=== PATIENT | male | born 1955 | race Caucasian/White ===

== ENCOUNTER 2019-05-08 07:03 | Emergency (ER) | payer MEDICAID ==
[~2019-05-08] VITALS: Ht 188 cm; Wt 136.4 kg
[~2019-05-08 07:03] MED LIST: ALBU8.5H8 IH; ASPI81TA52 PO; COLC1TAB2 PO; GABA-532 PO; HYDR-4383 PO; HYDR25TA4 PO; LISI40TA4 PO; LORA10TA2 PO; MELO-82 PO; TRAM50TA2 PO
[2019-05-08 08:42] LABS: BASOPHILS # (AUTO) 0.1 X10'3 (0-0.2); BASOPHILS % (AUTO) 0.9 % (0-1); EOSINOPHILS # (AUTO) 0.2 X10'3 (0-0.9); HEMATOCRIT 48.4 % (42.0-52.0); HEMOGLOBIN 15.7 g/dl (14.0-17.9); LYMPHOCYTES % (AUTO) 26.2 % (21-51); MEAN CORPUSCULAR HEMOGLOBIN 30.2 PG (27.0-31.0); MEAN CORPUSCULAR HGB CONC 32.5 g/dL (33.0-36.5); MEAN CORPUSCULAR VOLUME 93.1 FL (78-98); MEAN PLATELET VOLUME 8.9 FL (7.4-10.4); MONOCYTES # (AUTO) 0.7 X10'3 (0-0.9); MONOCYTES % (AUTO) 8.4 % (2-12); NEUTROPHILS # (AUTO) 4.8 X10'3 (1.8-7.7); NEUTROPHILS % (AUTO) 61.5 % (42-75); PLATELET COUNT 248 X10'3 (140-440); WHITE BLOOD COUNT 7.8 X10'3 (4.5-11.0)
[2019-05-08] MEDS ORDERED: AZIT-63 PO (08:47)
[2019-05-08] MEDS ORDERED: azithromycin 250mg tablet PO ONE (08:50)
[2019-05-08] MEDS ORDERED: tranexamic acid inj. 1,000 MG in normal saline 100ml IV soln 100 ML IV ONE (09:00)
[2019-05-08 09:06] LABS: CHLORIDE 103 MMOL/L (99-107); GLUCOSE 106 MG/DL (70-104); POTASSIUM 3.8 MMOL/L (3.5-5.1); SODIUM 141 MMOL/L (135-145)
[2019-05-08 09:07] LABS: ALBUMIN 3.4 G/DL (3.4-5.0); ANION GAP 6 (8-16); BILIRUBIN,TOTAL 0.7 MG/DL (0.1-1.0); BLOOD UREA NITROGEN 22 MG/DL (7-18); BUN/CREATININE RATIO 19.8 (5.4-32.0); CALCIUM 8.7 MG/DL (8.5-10.1); CREATININE 1.11 MG/DL (0.60-1.10); MAGNESIUM 1.9 MG/DL (1.5-2.4); TOTAL CARBON DIOXIDE 31.9 MMOL/L (24-32); TOTAL PROTEIN 6.9 G/DL (6.4-8.2); eGFR 67 ML/MIN
[2019-05-08 09:08] LABS: ALANINE AMINOTRANSFERASE 32 U/L (12-78); ALKALINE PHOSPHATASE 102 IU/L (46-116); ASPARTATE AMINO TRANSFERASE 37 U/L (10-37)
[2019-05-08 09:19] LABS: PARTIAL THROMBOPLASTIN TIME 29 SECONDS (22-32)
--- NOTE | 2019-05-08 11:11 | NUR ---
pt given a sandwich and some milk
[2019-05-08 11:12] VITALS: BP 155/73
[2019-05-08] MEDS ORDERED: ALLO300T8 PO (23:07)
[2019-05-08] MEDS ORDERED: AMLO5TAB16 PO (23:07)
[2019-05-08] MEDS ORDERED: FURO20TA4 PO (23:07)
[2019-05-08] MEDS ORDERED: METO-411 PO (23:07)
== END 2019-05-08 11:19 | disposition home or self-care (01) ==
LOC: ER 07:04
DX: J20.9 Acute bronchitis, unspecified (principal); R04.2 Hemoptysis; I10 Essential (primary) hypertension; M19.90 Unspecified osteoarthritis, unspecified site; F41.9 Anxiety disorder, unspecified; M10.9 Gout, unspecified; F10.99 Alcohol use, unspecified with unspecified alcohol-induced disorder; Z87.442 Personal history of urinary calculi; Z90.49 Acquired absence of other specified parts of digestive tract; Z98.890 Other specified postprocedural states; Z87.891 Personal history of nicotine dependence; Z88.8 Allergy status to other drugs, medicaments and biological substances; Z79.82 Long term (current) use of aspirin; Z79.899 Other long term (current) drug therapy; Y90.9 Presence of alcohol in blood, level not specified
CPT/HCPCS: 36415; 71045; 71250; 80053; 83735; 83880; 85025; 85610; 85730; 96365; 99284

== ENCOUNTER 2019-05-08 20:51 | Inpatient (IN) | payer MEDICAID ==
[~2019-05-08] VITALS: Ht 188 cm; Wt 136.0 kg
[~2019-05-08 20:51] MED LIST changes: +AZIT-63 PO
[2019-05-08 21:48] LABS: BASOPHILS # (AUTO) 0.1 X10'3 (0-0.2); EOSINOPHILS # (AUTO) 0.2 X10'3 (0-0.9); EOSINOPHILS % (AUTO) 2.8 % (0-6); HEMATOCRIT 48.2 % (42.0-52.0); HEMOGLOBIN 15.5 g/dl (14.0-17.9); LYMPHOCYTES # (AUTO) 1.6 X10'3 (1.1-4.8); LYMPHOCYTES % (AUTO) 22.9 % (21-51); MEAN CORPUSCULAR HEMOGLOBIN 29.8 PG (27.0-31.0); MEAN CORPUSCULAR HGB CONC 32.1 g/dL (33.0-36.5); MEAN CORPUSCULAR VOLUME 92.9 FL (78-98); MEAN PLATELET VOLUME 8.3 FL (7.4-10.4); MONOCYTES # (AUTO) 0.6 X10'3 (0-0.9); NEUTROPHILS # (AUTO) 4.6 X10'3 (1.8-7.7); NEUTROPHILS % (AUTO) 65.3 % (42-75); PLATELET COUNT 232 X10'3 (140-440); RED BLOOD COUNT 5.19 X10'6 (4.70-6.10)
[2019-05-08 22:00] LABS: ALANINE AMINOTRANSFERASE 29 U/L (12-78); ALBUMIN 3.4 G/DL (3.4-5.0); ALKALINE PHOSPHATASE 103 IU/L (46-116); ANION GAP 4 (8-16); ASPARTATE AMINO TRANSFERASE 36 U/L (10-37); BILIRUBIN,TOTAL 0.9 MG/DL (0.1-1.0); BLOOD UREA NITROGEN 19 MG/DL (7-18); BUN/CREATININE RATIO 18.4 (5.4-32.0); CALCIUM 8.8 MG/DL (8.5-10.1); CHLORIDE 104 MMOL/L (99-107); CREATININE 1.03 MG/DL (0.60-1.10); GLUCOSE 119 MG/DL (70-104); SODIUM 140 MMOL/L (135-145); TOTAL CARBON DIOXIDE 31.9 MMOL/L (24-32); TOTAL PROTEIN 6.8 G/DL (6.4-8.2); eGFR 73 ML/MIN
--- NOTE | 2019-05-08 22:40 | NUR ---
PT UP FOR D/C. REQUESTED [facility] TO ASSIST IN DISCHARGE PROCESS. PT SPUTUM BAG FULL OF RED SPUTUM, SIGNIFICANTLY MORE THAN WHAT WAS AT TRIAGE. [facility] CANCELLED DISCHARGE ORDERS
[2019-05-08] MEDS ORDERED: FURO20TA4 PO (23:07)
[2019-05-08] MEDS ORDERED: METO-411 PO (23:07)
[2019-05-08] MEDS ORDERED: AMLO5TAB16 PO (23:07)
[2019-05-08] MEDS ORDERED: ALLO300T8 PO (23:07)
[2019-05-09] VITALS (9 sets, daily range): BP systolic 145–199; BP diastolic 60–93
[2019-05-09] MEDS ORDERED: ondansetron/PF 4mg/2ml inj IV PRN (00:05)
[2019-05-09] MEDS ORDERED: HYDROcodone/acetaminophen 5mg/325mg tablet PO PRN (00:05)
[2019-05-09] MEDS ORDERED: acetaminophen 325mg tablet PO PRN (00:05)
[2019-05-09] MEDS ORDERED: mag hydrox/Alum hydrox/simeth 30ml oral suspension PO PRN (00:05)
[2019-05-09] MEDS ORDERED: magnesium hydroxide 30ml (MOM) UD suspension PO PRN (00:05)
[2019-05-09] MEDS ORDERED: morphine 2 MG/ML inj. syringe IV PRN (00:05)
[2019-05-09] MEDS: normal saline 1000ml 1,000 ML IV SCH ×3 (00:24→20:07)
[2019-05-09] MEDS: levoFLOXACIN-Levaquin 500mg/D5 100 ML IV SCH (00:24)
--- NOTE | 2019-05-09 00:33 | NUR ---
NOTIFIED [facility] OF PT BP 218/106, NO NEW ORDERS AT THIS TIME
--- NOTE | 2019-05-09 01:00 | NUR ---
Received report from RUBEN Calloway in the ER at aprox 0045 . Patient transferred to unit at approximately 0100. Vital signs taken, 2 RN skin check performed with RUBEN Howard, patient placed on 2 L NC, re-started Levaquin at 100 mL/hr per md order and NS at 100 mL/hr. DART completed, patient ate sandwich, applesauce, and yogurt. Patient is resting will continue to monitor.
--- NOTE | 2019-05-09 02:51 | NUR ---
sent to nik PAGER ID: [phone] MESSAGE: ROOM 3011 Satish Espinoza Patient's BP has remained elevated most current readings are: @ 0217 173/93 0247 188/67 pt also showing sinus dysrithmias bradycardic episodes @ 0240HR 30-80
[2019-05-09] MEDS: ipratropium/albuterol 3ml nebule NEB SCH ×6 (03:11→23:25)
--- NOTE | 2019-05-09 03:16 | NUR ---
Spoke with Dr. Fontenot about patient's BP via telephone. He did not advise any medications or interventions at this time.
[2019-05-09] MEDS: hydrALAZINE 20mg/ml inj. IV PRN ×2 (04:22→23:10)
--- NOTE | 2019-05-09 05:35 | NUR ---
Gave patient prn Hydralazine at 0400 per MD order.
--- NOTE | 2019-05-09 06:26 | NUR ---
Problems reprioritized. Patient report given, questions answered & plan of care reviewed with RUBEN Powers.
--- NOTE | 2019-05-09 06:35 | NUR ---
Patient in room PCU 3011. I have received report from Nancy MIRANDA and had the opportunity to ask questions and assume patient care.
[2019-05-09] MEDS: loratadine 10mg tablet PO SCH (07:49)
[2019-05-09] MEDS: gabapentin 300mg capsule PO SCH ×5 (07:50→20:07)
[2019-05-09] MEDS: HYDROchlorothiazide 25mg tablet PO SCH (07:50)
[2019-05-09] MEDS: furosemide 20MG tablet PO SCH (07:50)
[2019-05-09] MEDS: allopurinol 300 MG tablet PO SCH (07:50)
[2019-05-09] MEDS: aspirin 81mg tablet.DR PO SCH (07:50)
[2019-05-09] MEDS: lisinopril 20mg tablet PO SCH (07:53)
[2019-05-09] MEDS: amLODIPine 5mg tablet PO SCH (07:54)
[2019-05-09] MEDS ORDERED: metoprolol succinate 25mg (24-HOUR) SR. Tablet PO SCH (08:00)
[2019-05-09] MEDS: MELOXICAM 7.5 MG PO SCH (08:00)
[2019-05-09] MEDS: budesonide 0.5mg/2ml UD nebule IH SCH ×2 (09:45→18:59)
--- NOTE | 2019-05-09 13:24 | NUR ---
Paged Dr Lozoya PAGER ID: [phone] MESSAGE: Priya [phone]. RE Gabriella Espinoza1. FYI that patient is still coughing up blood, since you were asking this morning and he had not yet. Just gave patient suction and there is blood present.
--- NOTE | 2019-05-09 14:09 | NUR ---
Paged Dr Lozoya PAGER ID: [phone] MESSAGE: Priya [phone]. RE Gabriella Espinoza1. FYI that patients HR did go down into the 40s, but is now back up at 58.
[2019-05-09] MEDS ORDERED: iohexol 300mg/ml 100ml inj. ONE (15:15)
--- NOTE | 2019-05-09 18:35 | NUR ---
Patient in room PCU 3009. I have received report from RUBEN Powers and had the opportunity to ask questions and assume patient care.
--- NOTE | 2019-05-09 18:44 | NUR ---
Problems reprioritized. Patient report given, questions answered & plan of care reviewed with Arlene MIRANDA.
[2019-05-09] MEDS: lactobacillus rhamnosus 10,000 MMU CELLS/CAPSULE PO SCH (20:07)
[2019-05-10] VITALS (7 sets, daily range): BP systolic 144–182; BP diastolic 57–91
--- NOTE | 2019-05-10 00:16 | NUR ---
Pt BP 199/68, treated with hydralazine 10mg IV, reduced to 182/93. MD notified. No further treatment at this time.
[2019-05-10] MEDS: levoFLOXACIN-Levaquin 500mg/D5 100 ML IV SCH (00:48)
[2019-05-10] MEDS: ipratropium/albuterol 3ml nebule NEB SCH ×6 (02:54→23:02)
[2019-05-10] MEDS: normal saline 1000ml 1,000 ML IV SCH ×2 (03:12→16:04)
[2019-05-10 06:05] LABS: ALBUMIN 3.3 G/DL (3.4-5.0); ANION GAP 5 (8-16); BLOOD UREA NITROGEN 11 MG/DL (7-18); BUN/CREATININE RATIO 14.5 (5.4-32.0); CALCIUM 9.5 MG/DL (8.5-10.1); CHLORIDE 103 MMOL/L (99-107); CREATININE 0.76 MG/DL (0.60-1.10); GLUCOSE 118 MG/DL (70-104); SODIUM 139 MMOL/L (135-145); TOTAL CARBON DIOXIDE 30.9 MMOL/L (24-32); eGFR > 90 ML/MIN
--- NOTE | 2019-05-10 06:13 | NUR ---
Problems reprioritized. Patient report given, questions answered & plan of care reviewed with RUBEN Powers.
--- NOTE | 2019-05-10 06:31 | NUR ---
Patient in room PCU 3011. I have received report from Arlene MIRANDA and had the opportunity to ask questions and assume patient care.
[2019-05-10] MEDS: budesonide 0.5mg/2ml UD nebule IH SCH ×2 (07:08→19:56)
[2019-05-10 07:30] LABS: BASOPHILS # (AUTO) 0.1 X10'3 (0-0.2); BASOPHILS % (AUTO) 1.1 % (0-1); EOSINOPHILS # (AUTO) 0.1 X10'3 (0-0.9); EOSINOPHILS % (AUTO) 0.7 % (0-6); HEMATOCRIT 48.9 % (42.0-52.0); HEMOGLOBIN 16.1 g/dl (14.0-17.9); LYMPHOCYTES # (AUTO) 1.3 X10'3 (1.1-4.8); LYMPHOCYTES % (AUTO) 14.5 % (21-51); MEAN CORPUSCULAR HEMOGLOBIN 30.5 PG (27.0-31.0); MEAN CORPUSCULAR HGB CONC 32.9 g/dL (33.0-36.5); MEAN CORPUSCULAR VOLUME 92.7 FL (78-98); MEAN PLATELET VOLUME 8.8 FL (7.4-10.4); MONOCYTES # (AUTO) 0.7 X10'3 (0-0.9); MONOCYTES % (AUTO) 7.9 % (2-12); NEUTROPHILS # (AUTO) 6.8 X10'3 (1.8-7.7); NEUTROPHILS % (AUTO) 75.8 % (42-75); PLATELET COUNT 213 X10'3 (140-440); RED BLOOD COUNT 5.27 X10'6 (4.70-6.10); RED CELL DISTRIBUTION WIDTH 14.8 % (11.5-14.5); WHITE BLOOD COUNT 8.9 X10'3 (4.5-11.0)
[2019-05-10] MEDS: aspirin 81mg tablet.DR PO SCH (07:30)
[2019-05-10] MEDS: loratadine 10mg tablet PO SCH (07:30)
[2019-05-10] MEDS: gabapentin 300mg capsule PO SCH ×4 (07:31→20:44)
[2019-05-10] MEDS: amLODIPine 5mg tablet PO SCH ×2 (07:31→08:54)
[2019-05-10] MEDS: allopurinol 300 MG tablet PO SCH (07:31)
[2019-05-10] MEDS: lisinopril 20mg tablet PO SCH (07:31)
[2019-05-10] MEDS: furosemide 20MG tablet PO SCH (07:31)
[2019-05-10] MEDS: HYDROchlorothiazide 25mg tablet PO SCH (07:32)
[2019-05-10] MEDS: MELOXICAM 7.5 MG PO SCH (07:33)
[2019-05-10] MEDS: lactobacillus rhamnosus 10,000 MMU CELLS/CAPSULE PO SCH ×2 (07:33→20:44)
[2019-05-10] MEDS: metoprolol succinate 25mg (24-HOUR) SR. Tablet PO SCH (07:33)
[2019-05-10 13:40] LABS: URINE AMPHETAMINE SCREEN POSITIVE (Neg); URINE BARBITUATE SCREEN NEGATIVE (Neg); URINE BENZODIAZEPINES SCREEN NEGATIVE (Neg); URINE CANNABINOID SCREEN POSITIVE (Neg); URINE COCAINE SCREEN NEGATIVE (Neg); URINE METHADONE SCREEN NEGATIVE (Neg); URINE OPIATE SCREEN POSITIVE (Neg); URINE PHENCYCLIDINE SCREEN NEGATIVE (Neg)
[2019-05-10] MEDS ORDERED: METF-950 PO (14:39)
--- NOTE | 2019-05-10 18:40 | NUR ---
Problems reprioritized. Patient report given, questions answered & plan of care reviewed with Pat RN.
--- NOTE | 2019-05-10 19:00 | NUR ---
pt states he coughed up bloody sputum earlier today Addendum: 05/10/19 at 2330 by Angie Cuevas RN Amended: Links added.
[2019-05-11] VITALS (22 sets, daily range): BP systolic 65–170; BP diastolic 42–96
[2019-05-11] MEDS: ipratropium/albuterol 3ml nebule NEB SCH ×5 (02:39→20:05)
[2019-05-11] MEDS: hydrALAZINE 20mg/ml inj. IV PRN (03:05)
[2019-05-11] MEDS: normal saline 1000ml 1,000 ML IV SCH ×3 (03:41→22:04)
[2019-05-11 06:02] LABS: BASOPHILS # (AUTO) 0.1 X10'3 (0-0.2); BASOPHILS % (AUTO) 1.1 % (0-1); EOSINOPHILS # (AUTO) 0.1 X10'3 (0-0.9); HEMATOCRIT 51.6 % (42.0-52.0); HEMOGLOBIN 17.1 g/dl (14.0-17.9); LYMPHOCYTES # (AUTO) 1.1 X10'3 (1.1-4.8); MEAN CORPUSCULAR HEMOGLOBIN 30.5 PG (27.0-31.0); MEAN CORPUSCULAR HGB CONC 33.2 g/dL (33.0-36.5); MEAN CORPUSCULAR VOLUME 91.8 FL (78-98); MEAN PLATELET VOLUME 8.6 FL (7.4-10.4); MONOCYTES # (AUTO) 0.7 X10'3 (0-0.9); MONOCYTES % (AUTO) 7.9 % (2-12); NEUTROPHILS # (AUTO) 6.5 X10'3 (1.8-7.7); PLATELET COUNT 215 X10'3 (140-440); RED BLOOD COUNT 5.62 X10'6 (4.70-6.10); RED CELL DISTRIBUTION WIDTH 14.7 % (11.5-14.5); WHITE BLOOD COUNT 8.4 X10'3 (4.5-11.0)
[2019-05-11 06:16] LABS: ALBUMIN 3.3 G/DL (3.4-5.0); ANION GAP 6 (8-16); BLOOD UREA NITROGEN 12 MG/DL (7-18); BUN/CREATININE RATIO 14.3 (5.4-32.0); CALCIUM 8.8 MG/DL (8.5-10.1); CHLORIDE 101 MMOL/L (99-107); CREATININE 0.84 MG/DL (0.60-1.10); GLUCOSE 120 MG/DL (70-104); POTASSIUM 3.8 MMOL/L (3.5-5.1); SODIUM 140 MMOL/L (135-145); TOTAL CARBON DIOXIDE 33.5 MMOL/L (24-32); eGFR > 90 ML/MIN
--- NOTE | 2019-05-11 06:27 | NUR ---
Patient in room PCU 3011. I have received report from Ariane RN and had the opportunity to ask questions and assume patient care.
[2019-05-11] MEDS: budesonide 0.5mg/2ml UD nebule IH SCH ×2 (07:29→20:05)
[2019-05-11] MEDS: MELOXICAM 7.5 MG PO SCH (08:00)
[2019-05-11] MEDS: allopurinol 300 MG tablet PO SCH (08:06)
[2019-05-11] MEDS: gabapentin 300mg capsule PO SCH ×4 (08:06→21:00)
[2019-05-11] MEDS: furosemide 20MG tablet PO SCH (08:06)
[2019-05-11] MEDS: loratadine 10mg tablet PO SCH (08:06)
[2019-05-11] MEDS: lactobacillus rhamnosus 10,000 MMU CELLS/CAPSULE PO SCH ×2 (08:06→20:59)
[2019-05-11] MEDS: metoprolol succinate 25mg (24-HOUR) SR. Tablet PO SCH (08:07)
[2019-05-11] MEDS: amLODIPine 5mg tablet PO SCH (08:07)
[2019-05-11] MEDS: HYDROchlorothiazide 25mg tablet PO SCH (08:07)
[2019-05-11] MEDS: lisinopril 20mg tablet PO SCH (08:07)
[2019-05-11] MEDS ORDERED: LIDOcaine 4% (40 mg/ml) topical solution 50ml MM ONE (09:50)
[2019-05-11] MEDS ORDERED: MIDAZolam 5mg/5ml vial IV PRN (09:50)
[2019-05-11] MEDS ORDERED: fentaNYL/PF 50MCG/1 ML 2ML syringe IV PRN (09:50)
[2019-05-11] MEDS ORDERED: LIDOcaine 4% (40 mg/ml) topical solution 50ml INH ONE (09:50)
[2019-05-11] MEDS ORDERED: phenylephrine 1% (X-tra strg) 15ml nasal spray NS ONE (09:50)
[2019-05-11] MEDS ORDERED: epiNEPHrine 1 mg/ml inj IR PRN (09:50)
[2019-05-11] MEDS ORDERED: LIDOcaine Viscous 15ml cup PO ONE (09:50)
[2019-05-11] MEDS: levoFLOXACIN 500mg tablet PO SCH (11:01)
[2019-05-11 11:42] LABS: CLARITY,URINE CLEAR (Clear); COLOR,URINE YELLOW (Yellow); GLUCOSE, URINE >=1000 mg/dl (Neg); KETONES,URINE NEGATIVE (Neg); LEUKOCYTE ESTERASE ,URINE NEGATIVE (Neg); NITRITES, URINE NEGATIVE (Neg); OCCULT BLOOD,URINE NEGATIVE (Neg); PROTEIN,URINE NEGATIVE (Neg); UROBILINOGEN,URINE 0.2 E.U/dL (0.2-1.0)
[2019-05-11 11:46] LABS: UA COLLECTION TYPE CLN CATCH MIDSTREAM
[2019-05-11 11:51] LABS: BACTERIA,URINE NONE SEEN /HPF (Neg); RBC,URINE 0-2 /HPF (0-2); SQUAMOUS EPITHELIAL CELL,UR FEW /LPF (FEW); WBC,URINE NONE SEEN /HPF (0-4)
[2019-05-11] MEDS ORDERED: lidocaine 2% viscous 15 ML cup ***bronch room only MM ONE (14:21)
[2019-05-11] MEDS ORDERED: LIDOCAINE 4% (40MG/ML) topical solution 50ml **BRONCH ONLY ONE (14:21)
[2019-05-11] MEDS ORDERED: phenylephrine 1% Nasal spray (extra-strength) 15 ML bottle **bronch room NS ONE (14:21)
[2019-05-11] MEDS ORDERED: epiNEPHrine 1 MG/ML 1 ml ampule **BRONCH ONLY ONE (14:21)
[2019-05-11] MEDS ORDERED: midazolam 2 mg/2 ml injection ONE (14:30)
[2019-05-11] MEDS ORDERED: fentaNYL/PF 50MCG/1 ML 2ML syringe ONE (14:31)
--- NOTE | 2019-05-11 16:00 | NUR ---
Patient returned from Bronchoscopy, in stable condition. BP 113/60 HR 73, 02 94 on 3L NC. Orders acknowledged to check vitals q15 min and to administer ice chips/clear liquid until patient's numbing wears off and has regained swallowing feeling.
[2019-05-11 17:11] LABS: BAL RBC 1350 /CU MM; BAL WBC 71 /CU MM
--- NOTE | 2019-05-11 18:21 | NUR ---
Problems reprioritized. Patient report given, questions answered & plan of care reviewed with Karolina MIRANDA.
--- NOTE | 2019-05-11 18:25 | NUR ---
Patient in room PCU 3011. I have received report from Priya MIRANDA and had the opportunity to ask questions and assume patient care.
[2019-05-12 03:00] VITALS: BP 143/74
[2019-05-12] MEDS: normal saline 1000ml 1,000 ML IV SCH (03:30)
[2019-05-12] MEDS: ipratropium/albuterol 3ml nebule NEB SCH ×5 (03:39→14:59)
[2019-05-12 03:45] VITALS: BP 143/72
[2019-05-12 05:42] LABS: BASOPHILS # (AUTO) 0.1 X10'3 (0-0.2); BASOPHILS % (AUTO) 0.5 % (0-1); EOSINOPHILS # (AUTO) 0.1 X10'3 (0-0.9); EOSINOPHILS % (AUTO) 0.7 % (0-6); HEMATOCRIT 48.5 % (42.0-52.0); HEMOGLOBIN 16.3 g/dl (14.0-17.9); LYMPHOCYTES # (AUTO) 1.2 X10'3 (1.1-4.8); LYMPHOCYTES % (AUTO) 9.8 % (21-51); MEAN CORPUSCULAR HEMOGLOBIN 31.1 PG (27.0-31.0); MEAN CORPUSCULAR HGB CONC 33.6 g/dL (33.0-36.5); MEAN CORPUSCULAR VOLUME 92.5 FL (78-98); MEAN PLATELET VOLUME 8.9 FL (7.4-10.4); MONOCYTES # (AUTO) 1.1 X10'3 (0-0.9); MONOCYTES % (AUTO) 9.3 % (2-12); NEUTROPHILS # (AUTO) 9.5 X10'3 (1.8-7.7); NEUTROPHILS % (AUTO) 79.7 % (42-75); PLATELET COUNT 225 X10'3 (140-440); RED BLOOD COUNT 5.24 X10'6 (4.70-6.10); RED CELL DISTRIBUTION WIDTH 14.7 % (11.5-14.5); WHITE BLOOD COUNT 11.9 X10'3 (4.5-11.0)
[2019-05-12 05:45] LABS: ALBUMIN 3.1 G/DL (3.4-5.0); ANION GAP 6 (8-16); BLOOD UREA NITROGEN 20 MG/DL (7-18); BUN/CREATININE RATIO 19.6 (5.4-32.0); CALCIUM 8.8 MG/DL (8.5-10.1); CHLORIDE 100 MMOL/L (99-107); CREATININE 1.02 MG/DL (0.60-1.10); GLUCOSE 138 MG/DL (70-104); SODIUM 138 MMOL/L (135-145); TOTAL CARBON DIOXIDE 32.1 MMOL/L (24-32); eGFR 74 ML/MIN
[2019-05-12 06:04] LABS: POTASSIUM 4.3 MMOL/L (3.5-5.1)
--- NOTE | 2019-05-12 06:07 | NUR ---
Patient in room PCU 3011. I have received report from [facility] and had the opportunity to ask questions and assume patient care.
--- NOTE | 2019-05-12 06:11 | NUR ---
Problems reprioritized. Patient report given, questions answered & plan of care reviewed with Shea MIRANDA. Addendum: 05/12/19 at 0613 by Karolina Robert RN Danae MIRANDA
[2019-05-12] MEDS: budesonide 0.5mg/2ml UD nebule IH SCH (06:58)
[2019-05-12 07:00] VITALS: BP 132/72
[2019-05-12] MEDS: MELOXICAM 7.5 MG PO SCH (08:00)
[2019-05-12] MEDS: gabapentin 300mg capsule PO SCH ×2 (08:15→12:42)
[2019-05-12] MEDS: metoprolol succinate 25mg (24-HOUR) SR. Tablet PO SCH (08:15)
[2019-05-12] MEDS: loratadine 10mg tablet PO SCH (08:15)
[2019-05-12] MEDS: HYDROchlorothiazide 25mg tablet PO SCH (08:15)
[2019-05-12] MEDS: lactobacillus rhamnosus 10,000 MMU CELLS/CAPSULE PO SCH (08:16)
[2019-05-12] MEDS: lisinopril 20mg tablet PO SCH (08:16)
[2019-05-12] MEDS: furosemide 20MG tablet PO SCH (08:16)
[2019-05-12] MEDS: allopurinol 300 MG tablet PO SCH (08:16)
[2019-05-12] MEDS: amLODIPine 5mg tablet PO SCH (08:16)
[2019-05-12 11:00] VITALS: BP 156/77
[2019-05-12] MEDS: levoFLOXACIN 500mg tablet PO SCH (11:45)
[2019-05-12] MEDS ORDERED: LEVO500T89 PO (14:06)
[2019-05-12] MEDS ORDERED: NOR5T PO (14:06)
--- NOTE | 2019-05-12 14:08 | NUR ---
Paged Dr. Lozoya PAGER ID: [phone] MESSAGE: [id number] Juli- Ambulated patient sat 92 on room air.
[2019-05-12] MEDS ORDERED: METO50TA7 PO (14:18)
--- NOTE | 2019-05-12 16:10 | NUR ---
Patient discharged. All discharge instructions given to patient. Bedside delivery of new prescriptions. IV removed cannula intact, Tele box removed and returned. Patient was wheeled down where patients friend was waiting to picker tender helper.
[2019-05-13] MEDS ORDERED: metoprolol succinate 25mg (24-HOUR) SR. Tablet PO SCH (08:00)
[2019-05-13 14:01] LABS: ATYPICAL PANCA <1:20 titer (Neg:<1:20); CYTOPLASMIC (C-ANCA) <1:20 titer (Neg:<1:20); PERINUCLEAR (P-ANCA) <1:20 titer (Neg:<1:20)
== END 2019-05-12 16:10 | disposition home or self-care (01) | DRG 812 ==
LOC: ER 20:52 → PCU 3S 05-09 00:53 → CMPBEDREQ 05-10 17:24
PROVIDERS: ADMIT Family Medicine; ATTEND Family Medicine
PROC: BW241ZZ Computerized Tomography (CT Scan) of Chest and Abdomen using Low Osmolar Contrast (ICD-10-PCS; 2019-05-09)
PROC: CB121ZZ Planar Nuclear Medicine Imaging of Lungs and Bronchi using Technetium 99m (Tc-99m) (ICD-10-PCS; 2019-05-10)
PROC: 0B9D8ZZ Drainage of Right Middle Lung Lobe, Via Natural or Artificial Opening Endoscopic (ICD-10-PCS; principal; 2019-05-11)
DX: T43.621A Poisoning by amphetamines, accidental (unintentional), initial encounter (principal); G62.9 Polyneuropathy, unspecified; J20.9 Acute bronchitis, unspecified; F17.290 Nicotine dependence, other tobacco product, uncomplicated; F41.9 Anxiety disorder, unspecified; M10.9 Gout, unspecified; M19.90 Unspecified osteoarthritis, unspecified site; R00.1 Bradycardia, unspecified; F15.10 Other stimulant abuse, uncomplicated; R04.2 Hemoptysis; G47.33 Obstructive sleep apnea (adult) (pediatric); E66.9 Obesity, unspecified; I10 Essential (primary) hypertension; Z79.84 Long term (current) use of oral hypoglycemic drugs; Z79.899 Other long term (current) drug therapy; Z87.442 Personal history of urinary calculi; Z88.8 Allergy status to other drugs, medicaments and biological substances; Z90.49 Acquired absence of other specified parts of digestive tract; Z79.82 Long term (current) use of aspirin; Z68.38 Body mass index [BMI] 38.0-38.9, adult; Y92.89 Other specified places as the place of occurrence of the external cause
CPT/HCPCS: 36415; 71045; 71260; 78582; 80048; 80053; 80305; 81001; 82088; 85025; 86038; 86256; 87070; 87077; 87081; 87102; 87186; 87305; 89051; 93306; 93975; 94640; 94668; 94760; 96365; 96375; 99285; A9539; A9540; G0378; J0171; J0360; J1956; J2250; J3010; J7030; J7626; Q9967

== ENCOUNTER 2023-12-08 08:49 | Day surgery (SDC) | payer BC, MEDICAID ==
[2023-12-04 10:32] LABS: BASOPHILS # (AUTO) 0.1 X10'3 (0-0.2); BASOPHILS % (AUTO) 0.9 % (0-1); EOSINOPHILS # (AUTO) 0.4 X10'3 (0-0.9); EOSINOPHILS % (AUTO) 3.2 % (0-6); LYMPHOCYTES # (AUTO) 3.3 X10'3 (1.1-4.8); LYMPHOCYTES % (AUTO) 29.7 % (21-51); MEAN CORPUSCULAR HEMOGLOBIN 27.8 PG (27.0-31.0); MEAN CORPUSCULAR HGB CONC 31.9 g/dL (33.0-36.5); MEAN CORPUSCULAR VOLUME 87.1 FL (78-98); MEAN PLATELET VOLUME 8.6 FL (7.4-10.4); MONOCYTES # (AUTO) 0.7 X10'3 (0-0.9); MONOCYTES % (AUTO) 6.7 % (2-12); NEUTROPHILS # (AUTO) 6.5 X10'3 (1.8-7.7); NEUTROPHILS % (AUTO) 59.5 % (42-75); PRE OP HEMATOCRIT 51.3 % (42.0-52.0); PRE OP HEMOGLOBIN 16.4 g/dL (14.0-17.9); PRE OP PLATELET COUNT 268 X10'3 (140-440); RED BLOOD COUNT 5.89 X10'6 (4.70-6.10); RED CELL DISTRIBUTION WIDTH 16.9 % (11.5-14.5)
[2023-12-04 10:45] LABS: ALBUMIN 3.8 G/DL (3.4-5.0); ALBUMIN/GLOBULIN RATIO 0.9 (1.1-1.5); ALKALINE PHOSPHATASE 142 IU/L (46-116); BLOOD UREA NITROGEN 22 MG/DL (7-18); BUN/CREATININE RATIO 25.6 (10.0-20.0); CALCIUM 9.7 MG/DL (8.5-10.1); CHLORIDE 103 MMOL/L (99-107); CREATININE 0.86 MG/DL (0.60-1.10); PRE OP ALT 19 U/L (30-65); PRE OP ANION GAP 8 (8-16); PRE OP AST 23 U/L (10-37); PRE OP BILIRUB, TOTAL 0.5 MG/DL (0.0-1.0); PRE OP GLUCOSE 72 MG/DL (70-104); PRE OP SODIUM 144 MMOL/L (135-145); TOTAL CARBON DIOXIDE 33.3 MMOL/L (24-32); TOTAL PROTEIN 7.9 G/DL (6.4-8.2); eGFR 89 ML/MIN
[~2023-12-08] VITALS: Ht 188 cm; Wt 140.6 kg
[2023-12-08] VITALS (7 sets, daily range): BP systolic 141–166; BP diastolic 67–89; PULSE 74–84; RESP 16–24; TEMP 98.1; O2SAT 94–97
[2023-12-08] MEDS: cefazolin 2gm/D5W 100mL 100 ML IV ONE (05:30)
[~2023-12-08 08:49] MED LIST changes: -ALBU8.5H8 IH; +ALLO300T8 PO; +ATOR10TA87 PO; -AZIT-63 PO; -COLC1TAB2 PO; +DOCUMENT DATE & TIME OF BETA-BLOCKER PO ONE; +EMPA25TA PO; +FLUT1BLS4 INH; +FURO80TA3 PO; -GABA-532 PO; +GLIP10TA21 PO; -HYDR-4383 PO; -HYDR25TA4 PO; +IPRA3AMP31 NEB; +KEN0.1O TP; +LIDOCAINE PATCH; +LISI40TA13 PO; -LISI40TA4 PO; -LORA10TA2 PO; -MELO-82 PO; +METF-438 PO; +METO-411 PO; -TRAM50TA2 PO; +TRAZ-251 PO
[2023-12-08] MEDS: famotidine 20mg tablet PO ONE (10:45)
[2023-12-08] MEDS: ringers solution, lacted 1,000 ML IV SCH (10:45)
[2023-12-08] MEDS ORDERED: meperidine/PF 25mg/ml syringe IV PRN ×3 (12:10)
[2023-12-08] MEDS ORDERED: hydrALAZINE 20mg/ml inj. IV PRN (12:10)
[2023-12-08] MEDS ORDERED: ringers solution, lacted 1,000 ML IV SCH (12:10)
[2023-12-08] MEDS ORDERED: proCHLORperazine 10 MG/2 ml inj IV PRN (12:10)
[2023-12-08] MEDS ORDERED: labetalol 20mg/4ml (5mg/ml) syringe IV PRN (12:10)
[2023-12-08] MEDS ORDERED: acetaminophen 1,000mg/100ml IV 100 ML IV ONE (12:10)
[2023-12-08] MEDS ORDERED: morphine 2 MG/ML inj. syringe IV PRN (12:10)
[2023-12-08] MEDS ORDERED: ondansetron/PF 4mg/2ml inj IV PRN (12:10)
[2023-12-08] MEDS ORDERED: morphine 4 MG/ML inj SYRINge IV PRN (12:10)
[2023-12-08] MEDS ORDERED: LIDOcaine 1% (10mg/ml)w/preservative inj. 20ml MDV ONE (12:32)
[2023-12-08] MEDS ORDERED: BUPIVAcaine 2.5mg/ml inj 50ml vial (contains preservative) ONE (12:32)
[2023-12-08] MEDS ORDERED: fentaNYL/PF 50MCG/1 ML 2ML syringe ONE (12:49)
[2023-12-08] MEDS ORDERED: midazolam 1 mg/ML 2ml injection ONE (12:53)
[2023-12-08] MEDS ORDERED: LIDOcaine 1%/PF 5ML 10 MG/ML VIAL ONE (12:56)
[2023-12-08] MEDS ORDERED: propofol inj 20 ML IV ONE ×2 (12:56)
[2023-12-08] MEDS: BUPIVAcaine 2.5mg/ml inj 50ml vial (contains preservative) SQ ONE (13:05)
[2023-12-08] MEDS: LIDOcaine 2% (20mg/ml) 5ml vial SQ ONE (13:05)
== END 2023-12-08 13:09 | disposition home or self-care (01) ==
LOC: PAS 08:49
PROVIDERS: ATTEND Orthopaedic Surgery Hand Surgery
DX: G56.02 Carpal tunnel syndrome, left upper limb (principal); I10 Essential (primary) hypertension; E11.9 Type 2 diabetes mellitus without complications; G47.33 Obstructive sleep apnea (adult) (pediatric); J44.9 Chronic obstructive pulmonary disease, unspecified; M10.9 Gout, unspecified; I25.2 Old myocardial infarction; I20.9 Angina pectoris, unspecified; M19.90 Unspecified osteoarthritis, unspecified site; Z87.891 Personal history of nicotine dependence; Z79.82 Long term (current) use of aspirin; Z79.84 Long term (current) use of oral hypoglycemic drugs; Z79.899 Other long term (current) drug therapy; Z96.642 Presence of left artificial hip joint; Z98.890 Other specified postprocedural states; Z88.8 Allergy status to other drugs, medicaments and biological substances
CPT/HCPCS: 29848; 36415; 80053; 82948; 85025; 93005; J0690; J2250; J2704; J3010; J3490; J7030; J7120; Z7506; Z7512; A4215; A4615; A6449; A7000